=== PATIENT | male | born 1985 | race Asian ===

== ENCOUNTER 2017-06-06 14:31 | Emergency (ER) | payer OTHER ==
[2017-06-06 15:14] VITALS: BP 155/87
--- NOTE | 2017-06-06 15:46 | UC ---
Headache HPI - HPI Summary HPI Summary: C/O left sided headache feeling like some pounding bursting out of the parietal area. Discomfort has moved down to the side of the face in the 5th nerve distribution. 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 [employer] Onset/Duration: Gradual Onset, Lasting Days - 10, Lasting Weeks Onset Of Symptoms: Gradual Initially Headache Was: Mild Currently Pain Is: Mild Pain Intensity: 2 Timing: Constant Character: Unable To Describe Location of Headache: Parietal - on frontal scalp and extending down on the face 5th nerve distribution Aggravating Factor(s): Nothing Allevating Factor(s): Nothing Associated Signs And Symptoms: Negative: Dizziness, Seizure, Nausea, Vomiting, Sinus Pressure, Fever, Neck Pain, Neck Stiffness, Decreased LOC, Visual Changes - Risk Factors SAH Risk Factors: Negative Meningitis Risk Factors: Negative SDH Risk Factors: Negative Temporal Arteritis Risk Factors: Negative - Allergies/Home Medications Allergies/Adverse Reactions: Allergies Allergy/AdvReac Type Severity Reaction Status Date / Time No Known Allergies Allergy Verified 06/06/17 15:02 PMH/Surg Hx/FS Hx/Imm Hx Previously Healthy: Yes Other History Of: Negative For: HIV, Hepatitis B, Hepatitis C - Surgical History Surgical History: None - Family History Known Family History: Negative: Cardiac Disease, Hypertension, Diabetes - Social History Occupation: Employed Full-time Lives: With Family Alcohol Use: Rare Substance Use Type: None Smoking Status (MU): Never Smoked Tobacco Have You Smoked in the Last Year: No - Immunization History Most Recent Influenza Vaccination: Not the Season Review of Systems Eyes: Eye Redness Neurological: Headache, Paresthesia Is Patient Immunocompromised?: No All Other Systems Reviewed And Are Negative: Yes Physical Exam Triage Information Reviewed: Yes Appearance: Well-Appearing, Well-Nourished, Pain Distress - mild Vital Signs: Initial Vital Signs Temp 99.1 F 06/06/17 15:02 Pulse 80 06/06/17 15:02 Resp 18 06/06/17 15:02 BP 155/87 06/06/17 15:02 Pulse Ox 99 06/06/17 15:02 Vital Signs Reviewed: Yes Eyes: Positive: Conjunctiva Inflamed - OU ENT: Positive: Pharynx normal, TMs normal Neck exam: Normal Respiratory Exam: Normal Cardiovascular Exam: Normal Musculoskeletal Exam: Normal Neurological: Positive: Other: - Dysaesthesia in the 5th nerve distribution left side of the face to sharp sensation. Light touch was normal. Psychological Exam: Normal Skin Exam: Normal Headache Course/Dx - Differential Dx/Diagnosis Differential Diagnosis/HQI/PQRI: Migraine, Sinus Headache, Temporal Arteritis Provider Diagnoses: Trigeminal neuralgia Discharge - Discharge Plan Condition: Stable Disposition: HOME Prescriptions: predniSONE TAB* [Deltasone TAB*] 20 mg PO DAILY #18 tab Patient Education Materials: Trigeminal Neuralgia (ED), Prednisone (By mouth) Print Language: TELUGU Referrals: No Primary Care Phys,NOPCP [Primary Care Provider] - Additional Instructions: If not improving in 3 days or if getting worse advised to go to the ER.
== END 2017-06-06 16:25 | disposition home or self-care (01) ==
LOC: UCCORT 14:31
DX: G50.0 Trigeminal neuralgia (principal)
CPT/HCPCS: 99212; G0463

== ENCOUNTER 2019-03-19 17:07 | Emergency (ER) | payer OTHER ==
[2019-03-19 17:36] VITALS: BP 142/95
--- NOTE | 2019-03-19 18:27 | UC ---
Cardiac HPI - HPI Summary HPI Summary: Has had left upper chest wall pain x 2-3 months. Seen ER and diagnosed with muscle pain. - History of Current Complaint Chief Complaint: UCGeneralIllness Stated Complaint: CHEST MUSCLE PAIN Time Seen by Provider: 03/19/19 17:39 Hx Obtained From: Patient - Used google translate to communicate Onset/Duration: Lasting Weeks - 10, Still Present Initial Severity: Mild Current Severity: Moderate Pain Intensity: 3 Chest Pain Location: Left Anterior - up toward the axilla Character: Sharp/Stabbing Aggravating Factor(s): Movement Alleviating Factor(s): Rest Associated Signs & Symptoms: Positive: Chest Pain. Negative: Anxiety, Numbness , Tingling, Dizziness, SOB, Swelling, Nausea/Vomiting, Palpitations - Allergy/Home Medications Allergies/Adverse Reactions: Allergies Allergy/AdvReac Type Severity Reaction Status Date / Time No Known Allergies Allergy Verified 03/19/19 17:36 PMH/Surg Hx/FS Hx/Imm Hx Previously Healthy: Yes Other History Of: Negative For: HIV, Hepatitis B, Hepatitis C - Surgical History Surgical History: None - Family History Known Family History: Negative: Cardiac Disease, Hypertension, Diabetes - Social History Occupation: Employed Full-time Alcohol Use: Rare Substance Use Type: None Smoking Status (MU): Never Smoked Tobacco Have You Smoked in the Last Year: No - Immunization History Most Recent Influenza Vaccination: Not the 2015/2016 Season Review of Systems All Other Systems Reviewed And Are Negative: Yes Cardiovascular: Positive: Chest Pain Gastrointestinal: Positive: Other - c/o GERD and dysphagia in the throat and in the chest. Physical Exam Triage Information Reviewed: Yes Appearance: Well-Appearing, No Pain Distress, Well-Nourished Vital Signs: Initial Vital Signs Temp 98.3 F 03/19/19 17:31 Pulse 70 03/19/19 17:31 Resp 16 03/19/19 17:31 BP 142/95 03/19/19 17:31 Pulse Ox 98 03/19/19 17:31 Vital Signs Reviewed: Yes Eyes: Positive: Conjunctiva Clear ENT: Positive: Pharynx normal, Nasal congestion, TMs normal Neck exam: Normal Respiratory: Positive: Lungs clear. Negative: Chest non-tender - Tender with muscle knots over the pectoralis minor. Cardiovascular Exam: Normal Abdomen Description: Positive: Nontender, No Organomegaly Musculoskeletal Exam: Normal Neurological Exam: Normal Psychological Exam: Normal Skin Exam: Normal - Differential Diagnoses - Chest Pain Differential Diagnosis/HQI/PQRI: Chest Wall, Lower Respiratory Infection, Pulmonary Embolism - Clinical Impression Provider Diagnosis: Muscular chest pain, GERD (gastroesophageal reflux disease), Dysphagia Discharge ED - Sign-Out/Discharge Documenting (check all that apply): Patient Departure All imaging exams completed and their final reports reviewed: No Studies - Discharge Plan Condition: Stable Disposition: HOME Prescriptions: Cyclobenzaprine TAB* [Flexeril 10 MG TAB*] 10 mg PO BEDTIME PRN #30 tab PRN Reason: Spasms - Muscle Famotidine TAB* [Pepcid 20 MG TAB*] 20 mg PO BID #60 tab Patient Education Materials: Chest Wall Pain (ED), Gastroesophageal Reflux Disease (ED), Dysphagia (ED) Referrals: No Primary Care Phys,NOPCP [Primary Care Provider] - Duane Sidhu DO [Doctor of Osteopathy] - 2 Weeks (GERD with dysphagia) Additional Instructions: Do chest wall stretches in the doorway. Do trigger point massage on the left upper chest. - Billing Disposition and Condition Condition: STABLE Disposition: Home
== END 2019-03-19 18:40 | disposition home or self-care (01) ==
LOC: UCCORT 17:07
DX: R07.89 Other chest pain (principal); K21.9 Gastro-esophageal reflux disease without esophagitis; R13.10 Dysphagia, unspecified
CPT/HCPCS: 99212; G0463

== ENCOUNTER 2019-03-22 15:02 | Emergency (ER) | payer OTHER ==
[2019-03-22 15:44] VITALS: BP 145/97
--- NOTE | 2019-03-22 16:28 | UC ---
Cardiac HPI - HPI Summary HPI Summary: Pt presents with c/o left side chest pain that worsens with movement. Pt also c /o feeling that there is something in the back of his throat. Pt was seen here on 03/19/19 for similar c/o. Pt was seen pt PCP in [facility] on 03/14/19. 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 Onset/Duration: Gradual Onset, Lasting Days, Still Present Timing: Constant Initial Severity: Mild Current Severity: Moderate Pain Intensity: 4 Chest Pain Location: Mid Sternal, Left Anterior Character: Dull/Aching, Tightness Aggravating Factor(s): Movement, Deep Breaths Alleviating Factor(s): Rest Associated Signs & Symptoms: Positive: Chest Pain - Risk Factors Pulmonary Embolism Risk Factors: Negative Cardiac Risk Factors: Hypertension Atrial Fibrillation: Hypertension TAD Risk Factors: Hypertension AMI/ACS Risk Factors: Hypertension - Allergy/Home Medications Allergies/Adverse Reactions: Allergies Allergy/AdvReac Type Severity Reaction Status Date / Time No Known Allergies Allergy Verified 03/22/19 15:21 PMH/Surg Hx/FS Hx/Imm Hx Previously Healthy: Yes Other History Of: Negative For: HIV, Hepatitis B, Hepatitis C - Surgical History Surgical History: None - Family History Known Family History: Negative: Cardiac Disease, Hypertension, Diabetes - Social History Occupation: Employed Full-time Lives: With Family Alcohol Use: None Substance Use Type: None Smoking Status (MU): Never Smoked Tobacco Have You Smoked in the Last Year: No - Immunization History Most Recent Influenza Vaccination: Not the 2016/2016 Season Review of Systems All Other Systems Reviewed And Are Negative: Yes Constitutional: Positive: Fatigue Skin: Positive: Negative Eyes: Positive: Negative ENT: Positive: Sore Throat Respiratory: Positive: Negative Cardiovascular: Positive: Chest Pain Gastrointestinal: Positive: Negative Genitourinary: Positive: Negative Motor: Positive: Negative Neurovascular: Positive: Negative Musculoskeletal: Positive: Negative Neurological: Positive: Negative Psychological: Positive: Negative Is Patient Immunocompromised?: No Physical Exam - Summary Physical Exam Summary: I used battery tester services to do PE of pt. Pt states that he was seen by PCP in [facility] on 03/14/19 and only uses his BP medication if his BP is elevated in the morning. He does not use it daily. Additionally, pt states that he does not sleep well at night, is fatigued/tired. Pt reports that his cp worsens with deep breaths. He states that he has had a great deal of stress recently. P twas given ranitidine at last visit here and states it did not help his symptoms. He states that the feeling in his throat began s/p having his teeth cleaned. When asked if he feels anxiety or depression he denies it. He denies recent illness, fever, chills , night sweats, difficulty swallowing, dizziness, HERNANDEZ, or SOB. No nausea, or vomiting. Triage Information Reviewed: Yes Appearance: Ill-Appearing, Other: - fatigued/tired Vital Signs: Initial Vital Signs Temp 98.4 F 03/22/19 15:24 Pulse 75 03/22/19 15:24 Resp 16 03/22/19 15:24 BP 145/97 03/22/19 15:24 Pulse Ox 98 03/22/19 15:24 Vital Signs Reviewed: Yes Eye Exam: Normal ENT: Positive: Normal ENT inspection Dental Exam: Normal Neck exam: Normal Neck: Positive: Supple, Nontender, No Lymphadenopathy Respiratory Exam: Normal Respiratory: Positive: Chest non-tender, Lungs clear, Normal breath sounds Cardiovascular Exam: Normal Musculoskeletal Exam: Normal Neurological Exam: Normal Psychological Exam: Normal Skin Exam: Normal - Assessment/Plan Course Of Treatment: Pt was referred to PCP, ENT and cone marker. - Differential Diagnoses - Chest Pain Differential Diagnosis/HQI/PQRI: Acute AL, ACS, Angina - Differential Diagnoses - Palpitations Differential Diagnosis/HQI/PQRI: Coronary Artery Disease - Clinical Impression Provider Diagnosis: Chest pain, Throat discomfort Discharge ED - Sign-Out/Discharge Documenting (check all that apply): Patient Departure All imaging exams completed and their final reports reviewed: No Studies - Discharge Plan Condition: Stable Disposition: HOME Patient Education Materials: Chest Pain (ED) Referrals: [facility] [place]] - As Soon As Possible Rohan Oliva MD [Medical Doctor] - Sher Ochoa MD [Medical Doctor] - As Soon As Possible Dung Aaron MD [Medical Doctor] - James Nash MD [Medical Doctor] - Markus JARQUIN,Svetlana Holley [Medical Doctor] - Edward Willis MD [Medical Doctor] - No Primary Care Phys,NOPCP [Primary Care Provider] - Felecia Sung NP [Nurse Practitioner] - Arianna Ansari MD [Medical Doctor] - Additional Instructions: Pleases follow up with your PCP, ENT and Nursing Home Aide. - Billing Disposition and Condition Condition: STABLE Disposition: Home
== END 2019-03-22 16:39 | disposition home or self-care (01) ==
LOC: UCCORT 15:02
DX: R07.89 Other chest pain (principal); J02.9 Acute pharyngitis, unspecified; R09.89 Other specified symptoms and signs involving the circulatory and respiratory systems; R53.83 Other fatigue
CPT/HCPCS: 87651; 93005; 99211; G0463